=== PATIENT | male | born 1975 | race Caucasian/White ===

== ENCOUNTER 2023-09-04 08:29 | Emergency (ER) | payer BC, SELFPAY ==
[2023-09-04 08:29] VITALS: BP 150/79; PULSE 68; RESP 14; TEMP 36.8; O2SAT 98; BMI 34.6
--- NOTE | 2023-09-04 08:41 | CT_ITS ---
STUDY: CT ABDOMEN AND PELVIS WITHOUT CONTRAST REASON FOR EXAM: Male, 47 years old. Right flank pain. RADIATION DOSAGE (If Supplied By Facility): CTDIvol = ( 20.96 ) mGy, DLP = ( 1120.55 ) mGycm TECHNIQUE: Transaxial images were obtained from the dome of the diaphragm to the symphysis pubis without oral contrast, and without intravenous contrast. Sagittal and coronal images were reconstructed. Individualized dose optimization techniques were used for this CT. COMPARISON: No relevant prior comparison study available FINDINGS: Evaluation of the abdominal viscera is limited in the absence of intravenous contrast. LOWER THORAX: The visualized lung bases are clear. The visualized portions of the heart and pericardium are within normal limits. GALLBLADDER / BILE DUCTS: There are no calcified gallstones present. The common bile duct is normal in caliber. There are no calcified ductal stones. LIVER: The liver is low in density, consistent with fatty infiltration. SPLEEN: The spleen is normal in size. PANCREAS: The pancreas demonstrates an unremarkable unenhanced appearance. ADRENAL GLANDS: The adrenal glands are within normal limits. KIDNEYS / BLADDER: There is a 2 mm stone in the right mid ureter with mild right hydroureteronephrosis. There are no additional urinary calculi. There is no left hydronephrosis. There are simple cysts in the left kidney. These are benign and do not require follow-up. The urinary bladder is partially distended and appears grossly unremarkable. STOMACH / BOWEL: There is a small hiatal hernia. There is no bowel obstruction or inflammation. The appendix is visualized and appears normal. PERITONEUM / RETROPERITONEUM: There is no abdominal or pelvic free air, free fluid or fluid collection. There is no abnormal soft tissue mass identified. There is no abdominal or pelvic lymphadenopathy. VESSELS: The aorta is normal in caliber. The IVC is unremarkable. BONES: There are no destructive osseous lesions. SOFT TISSUES: The visualized soft tissues are within normal limits. CT/Abdomen/Pelvis without Cont IMPRESSION: 2 mm stone in the right mid ureter with mild right hydroureteronephrosis. Fatty liver. Small hiatal hernia. Electronically Signed: Renny Leal MD at 9:28 EST ,
--- NOTE | 2023-09-04 08:42 | EDS_ITS ---
HPI History of Present Illness Chief Complaint: Flank Pain Informant: patient and spouse/S.O. Narrative Narrative: 47-year-old male presenting to the emergency room with a chief complaint of right flank pain. Patient states that this morning around 0600 he woke from sleep with pain in the right flank wrapping into the right lower quadrant. He notes its sharp stabbing waxing and waning. He notes a minor testicular ache. He notes associated nausea vomiting. He notes some diaphoresis. [place]. He is adopted. No personal history of kidney stones. No prior abdominal surgeries. He is treated for reflux and hypertension. He notes some recent constipation. [facility] Medical History (Updated 09/04/23 @ 09:[address] Andreas Hernandez, ) GERD (gastroesophageal reflux disease) Hypertension Home Medications ketorolac 10 mg tablet 10 mg PO TID PRN pain 5 days #15 tabs 09/04/23 [Rx Last Taken Unknown] ondansetron 4 mg disintegrating tablet 4 mg PO Q6H PRN PRN Nausea #15 tabs 09/04/23 [Rx Last Taken Unknown] oxycodone-acetaminophen 5 mg-325 mg tablet (Percocet) 1 tab PO Q4H PRN PRN pain 3 days #15 tabs 09/04/23 [Rx Last Taken Unknown] Allergy/AdvReac Type Severity Reaction Status Date / Time No Known Allergies Allergy Verified 09/04/23 08:29 Surgical History no surgical history no surgical history [facility] ED Constitutional Constitutional ED: Denies chills, fever(s) or weight loss Eyes Eyes: Denies change in vision or diplopia ENT ENT ED: Denies ear pain, rhinorrhea or sore throat Cardiovascular Cardiovascular: Denies chest pain, orthopnea, palpitations or racing heartbeat Respiratory/Chest Respiratory/Chest: Denies cough, dyspnea or orthopnea Gastrointestinal Gastrointestinal: Reports abdominal pain, nausea and vomiting; Denies diarrhea Genitourinary Genitourinary ED: Reports other Details: Right flank pain, right testicular pain ; Denies dysuria, hematuria or urinary frequency Musculoskeletal Musculoskeletal: Reports back pain; Denies arthralgias, myalgias or neck pain Integumentary Denies abscess or rash Neurologic Neurologic: Denies headache(s) or weakness Psychiatric Psychiatric: Denies anxiety, depression, suicidal ideation or suicidal thoughts Endocrine Endocrinology: Denies polydipsia, polyphagia or polyuria Allergic/Immunologic Allergic/Immunologic ED: Denies mouth swelling, tongue swelling or urticaria EXAM Physical Exam Const Vital Signs: 09/04/23 08:29 Temperature 98.3 F Temperature Source Temporal Pulse Rate 68 Respiratory Rate 14 Blood Pressure 150/79 H Blood Pressure Mean 102 Pulse Ox 98 Oxygen Delivery Method Room Air Positive well nourished and well developed General Appearance ED: well developed HEENT Reports normocephalic, head/scalp atraumatic and moist mucous membranes Eyes PERRL and EOMs intact bilaterally Neck no lymphadenopathy, supple and no JVD Resp normal respiratory effort and clear to auscultation bilaterally Cardio regular rate, regular rhythm and no murmurs GI normal to inspection, nondistended, normoactive bowel sounds and non-tender Palpation: soft Back/Spine no CVA tenderness and normal ROM Extremity normal to inspection General Extremety ED: Negative for edema General Extremity: Negative for edema Neuro oriented x3 and CN's II-XII intact bilaterally Sensorium / Orientation: alert Motor Exam: strength 5/5 throughout Psych mental status grossly normal Mood & Affect: Negative for depressed or tearful Skin no rashes or lesions noted and no wounds Skin Narrative: Diaphoresis MDM MDM MDM Narrative Medical decision making narrative: White count is 8.0. Creatinine is normal at 1.23. Blood sugar 148. Liver enzymes normal. Urinalysis shows some mild hematuria. CT abdomen pelvis demonstrates a mid ureteral stone measuring 2 to 3 mm. There is some associated hydronephroureter. Patient received Toradol Dilaudid Zofran and fluids. He is improved. I spoke with him and his regarding the expected management at home and return instructions. They note understanding. I will write for Percocet Toradol and Zofran at home. History & Record Review Discussion w/independent historian: Patient and Family Additional record(s) reviewed:: No prior records Lab Data Attestation: I reviewed the patient's lab results. Labs: Laboratory Results - last 24 hr 09/04/23 09/04/23 08:55 09:23 WBC 8.0 RBC 5.17 Hgb 13.9 Hct 42.3 MCV 81.8 MCH 26.9 L MCHC 32.9 RDW Std Deviation 39.8 RDW Coeff of Jaskaran 13.4 Plt Count 212 MPV 10.2 Immature Gran % (Auto) 0.700 Neut % (Auto) 64.8 Lymph % (Auto) 23.0 Henry % (Auto) 8.4 Eos % (Auto) 2.0 Baso % (Auto) 1.1 H Absolute Neuts (auto) 5.2 Absolute Lymphs (auto) 1.84 Nucleated RBC % 0 Sodium 142 Potassium 3.9 Chloride 111 H Carbon Dioxide 23.0 Anion Gap 8 BUN 22 H Creatinine 1.23 Estim Creat Clear Calc 85.71 Est GFR (MDRD) Af Amer 82 Est GFR (MDRD) Non-Af 67 BUN/Creatinine Ratio 17.9 Glucose 148 H Calcium 9.0 Total Bilirubin 0.60 AST 24 ALT 46 Alkaline Phosphatase 79 Total Protein 7.0 Albumin 3.3 Globulin 3.7 Albumin/Globulin Ratio 0.9 Urine Color Yellow Urine Clarity Sl. Cloudy Urine pH 6.5 Ur Specific [place] 1.020 Urine Protein 15 H Urine Glucose (UA) Normal Urine Ketones Negative Urine Occult Blood 250 H Urine Nitrite Negative Urine Bilirubin Negative Urine Urobilinogen Normal Ur Leukocyte Esterase Negative Urine RBC 25-50 SEEN Urine WBC 0 SEEN Ur Squamous Epith Cells 0-5 SEEN Urine Bacteria 0 SEEN Urine Mucus 0 SEEN Radiography Diagnostic Testing: Clinical Impression(s) from Imaging Studies Abdomen/Pelvis CT 09/04/23 08:41 IMPRESSION: 2 mm stone in the right mid ureter with mild right hydroureteronephrosis. Fatty liver. Small hiatal hernia. Electronically Signed: Renny Leal MD at 9:28 EST Reading Location ID and State: [facility] / [place] Tel , Service support , Discharge Plan Triage Chief Complaint: Flank Pain ED Provider: Andreas Hernandez Dx/Rx/DC Orders Clinical Impression: Ureterolithiasis, Renal colic on right side Instructions: ED Kidney Stone with Pain Prescriptions: New oxycodone-acetaminophen [Percocet] 5-325 mg tablet 1 tab PO Q4H PRN PRN (Reason: pain) 3 Days Qty: 15 0RF ondansetron [ondansetron] 4 mg tablet,disintegrating 4 mg PO Q6H PRN PRN (Reason: Nausea) Qty: 15 0RF ketorolac 10 mg tablet 10 mg PO TID PRN (Reason: pain) 5 Days Qty: 15 0RF Primary Care Provider: Niurka Yoo Activity Restrictions/Additional Instructions: You were found to have a kidney stone in the ureter on the right side. This measures approximately 3 mm. It is favorable that you will be able to pass this without surgery however some people will require surgery, repeat ED visit, or possible hospitalization for symptom management and definitive care. If your pain or symptoms is not controlled while you passed the stone please return to the hospital for repeat examination and care. Disposition Disposition: Home, Self Care
[2023-09-04] MEDS: Ondansetron 4 MG/2 ML Vial IV (08:46)
[2023-09-04] MEDS: Ketorolac 30 MG/ML Syringe IV (08:48)
[2023-09-04] MEDS: HYDROmorphone 1 MG/ML Syringe IV (08:49)
[2023-09-04] MEDS: 0.9% Normal Saline (1000mL) 1,000 ML 250 ML IV (08:54)
[2023-09-04 09:24] LABS: ALB/GLOB Ratio 0.9 RATIO (0.9-2.4); AST(SGOT) 24 U/L (15-37); Alanine Aminotransfer ALT/SGPT 46 U/L (16-61); Albumin, Serum 3.3 g/dL (3.2-5.0); Alkaline Phosphatase 79 U/L (45-117); Anion Gap 8 (5-15); BUN 22 mg/dL (7-18); BUN/Creat Ratio 17.9 RATIO (10-20); Chloride 111 mmol/L (98-107); Creatinine, Serum 1.23 mg/dL (0.70-1.30); EST Glomerular Filtration Rate 67 mL/min (>60); Est Glom Filt Rate - Afr Amer 82 mL/min (>60); Estimated Creatinine Clearance 85.71 ml/min; Globulin 3.7 g/dL (2.2-4.2); Glucose 148 mg/dL (74-106); Potassium 3.9 mmol/L (3.5-5.1); Sodium Level 142 mmol/L (136-145)
[2023-09-04 09:25] LABS: Absolute Lymphocyte Count 1.84 X10^3/uL (0.83-4.51); Absolute Neutrophil Count 5.2 X10^3/uL (2.0-7.7); Basophil# 0.09 X10^3/uL; Basophil% 1.1 % (0-1); Eosinophil# 0.16 X10^3/uL; Hematocrit 42.3 % (40-54); Hemoglobin 13.9 g/dL (13.0-16.5); Lymphocyte # 1.84 X10^3/ul (0.83-4.51); Mean Corp Hgb Conc 32.9 g/dL (32-36); Mean Corpuscular Hgb 26.9 pg (27.0-32.0); Mean Corpuscular Volume 81.8 fL (80-94); Mean Platelet Vol. 10.2 fl (6.2-12.0); Monocyte# 0.67 X10^3/uL; Monocyte% 8.4 % (0-10); NRBC Flagged by Analyzer 0 % (0-5); Neutrophil # 5.19 X10^3/uL (2.7-7.7); Neutrophil % 64.8 % (47-70); Platelet Count 212 K/mm3 (150-450); RBC Distribution Width CV 13.4 % (11.6-14.6); RBC Distribution Width SD 39.8 fl (35.1-43.9); Red Blood Count 5.17 M/mm3 (4.6-6.2)
[2023-09-04 09:28] LABS: Bacteria 0 SEEN /hpf (None Seen); Mucous, Urine 0 SEEN /hpf (<or=2+); White Blood Cells 0 SEEN /hpf (0-5)
[2023-09-04 09:29] LABS: Color, Urine Yellow (Yellow); Glucose, Dipstick Normal (Normal); Ketone-Dipstick Negative (Negative); Leukocyte Esterase-Dipstick Negative /ul (Negative); Nitrite-Dipstick Negative (Negative); Occult Blood-Urine 250 /ul (Negative); Protein-Dipstick 15 mg/dl (Negative); Urine Bilirubin Dipstick Negative (Negative); Urine Clarity Sl. Cloudy (Clear); Urine Urobilinogen Normal (Normal); Urine pH 6.5 (5.0 - 8.0)
[2023-09-04 09:35] LABS: Red Blood Cells-Urine 25-50 SEEN /hpf (0-5); Squamous Epithelial Cells - UA 0-5 SEEN /hpf (0-5)
[2023-09-04 09:58] VITALS: BP 129/73; PULSE 64; RESP 15; O2SAT 98
== END 2023-09-04 10:01 | disposition home or self-care (01) ==
PROVIDERS: Emergency Provider Emergency Medicine; Visit Provider Emergency Medicine
DX: N13.2 Hydronephrosis with renal and ureteral calculous obstruction (principal); N23 Unspecified renal colic
CPT/HCPCS: 74176; 80053; 81001; 85025; 96374; 96375; 99282; J7030; A4216; J2405